=== PATIENT | female | born 1995 | race Caucasian/White ===

== ENCOUNTER 2021-05-18 14:26 | Inpatient (IN) | payer MEDICAID ==
[2021-05-18] MEDS ORDERED: Lactated Ringers 1,000 ML IV ONE (14:45)
[2021-05-18] MEDS ORDERED: Lactated Ringers 1,000 ML IV SCH (15:45)
--- NOTE | 2021-05-18 16:44 | PCM.LDHP ---
L&D History of Present Illness - General Date of Service: 05/18/21 Admit Problem/Dx: Admission Diagnosis/Problem Admission Diagnosis/Problem - Related Data Allergies/Adverse Reactions: Allergies Allergy/AdvReac Type Severity Reaction Status Date / Time latex Allergy Hives Verified 05/18/21 15:43 Past Medical History Cardiovascular History: Reports: None RADIOLOGIC THERAPIST History: Reports: - Past Surgical History Other HEENT Surgeries/Procedures: Glasses, strabismus repair as a child H&P Review of Systems - Review of Systems: Review Of Systems: See Below General: Reports: No Symptoms HEENT: Reports: No Symptoms Pulmonary: Reports: No Symptoms Cardiovascular: Reports: No Symptoms Gastrointestinal: Reports: No Symptoms Genitourinary: Reports: No Symptoms Musculoskeletal: Reports: No Symptoms Skin: Reports: No Symptoms Psychiatric: Reports: No Symptoms Neurological: Reports: No Symptoms Hematologic/Lymphatic: Reports: No Symptoms Immunologic: Reports: No Symptoms L&D Exam - Exam Exam: See Below - Vital Signs Vital Signs: Last Vital Signs Temp 36.8 C 05/18/21 14:34 Pulse 73 05/18/21 14:34 Resp 16 05/18/21 14:34 BP 111/59 L 05/18/21 14:34 Pulse Ox 98 05/18/21 14:34 - OB Specific Contraction Duration (sec): 60-70 Contraction Frequency (min): 2.5-5 Contraction Intensity: Mild Movement: Active Heart Tones: Present Heart Rate (FHR) Variability: Moderate (6-25 bmp) Presentation: Vertex - Babcock Score Babcock Score Cervix Position: Midposition Babcock Score Consistency: Soft Babcock Score Effacement: 31-50% Babcock Score Dilation: 1-2 cm Babcock Score Infant's Station: -1 ,0 Babcock Score Total: 7 - Exam General: Alert, Oriented, Cooperative, Mild Distress HEENT: PERRLA, Conjunctiva Clear, EACs Clear, EOMI, Hearing Intact, Mucosa Moist & [place], Nares Patent, Normal Nasal Septum, Posterior Pharynx Clear, Pupils Equal, Pupils Reactive, TMs Clear Neck: Supple, Trachea Midline Lungs: Clear to Auscultation, Normal Respiratory Effort Cardiovascular: Regular Rate, Regular Rhythm GI/Abdominal Exam: Normal Bowel Sounds, Soft, Non-Tender, No Organomegaly, No Distention, No Abnormal Bruit, No Mass, Pelvis Stable Rectal Exam: Normal Exam, Normal Rectal Tone Genitourinary: Normal external exam, Normal bimanual exam, Normal speculum exam Back Exam: Normal Inspection, Full Range of Motion Extremities: Normal Inspection, Normal Range of Motion, Non-Tender, No Pedal Edema, Normal Capillary Refill Skin: Warm, Dry, Intact Neurological: Cranial Nerves Intact, Reflexes Equal Bilateral Psychiatric: Alert, Normal Affect, Normal Mood - Patient Data Lab Results Last 24 hrs: Laboratory Results - last 24 hr 05/18/21 05/18/21 Range/Units 14:35 14:48 WBC 10.7 (4.5-11.0) K/uL RBC 3.72 (3.30-5.50) M/uL Hgb 11.2 L (12.0-15.0) g/dL Hct 32.8 L (36.0-48.0) % MCV 88 (80-98) fL MCH 30 (27-31) pg MCHC 34 (32-36) % Plt Count 293 (150-400) K/uL Urine Color Yellow (YELLOW) Urine Appearance Clear (CLEAR) Urine pH 7.0 (5.0-8.0) Ur Specific [place] 1.020 (1.008-1.030) Urine Protein Negative (NEGATIVE) mg/dL Urine Glucose (UA) Negative (NEGATIVE) mg/dL Urine Ketones Negative (NEGATIVE) mg/dL Urine Occult Blood Negative (NEGATIVE) Urine Nitrite Negative (NEGATIVE) Urine Bilirubin Negative (NEGATIVE) Urine Urobilinogen 0.2 (0.2-1.0) EU/dL Ur Leukocyte Esterase Negative (NEGATIVE) Urine RBC 0-5 (0-5) Urine WBC Not seen (0-5) Ur Epithelial Cells Few Amorphous Sediment Few Urine Bacteria Few Urine Mucus Few Result Diagrams: 05/18/21 14:48 - Problem List (1) IUGR (intrauterine growth restriction) Status: Acute Current Visit: Yes (2) SNOMED Code(s): 48271917 ICD Code: Z34.90 - ENCNTR FOR SUPRVSN OF NORMAL , UNSP, UNSP TRIMESTER Status: Acute Current Visit: Yes Qualifiers: Weeks of gestation: 36 weeks Qualified Code(s): Z3A.36 - 36 weeks gestation of (3) High risk due to smoking in third trimester SNOMED Code(s): 46550099, 11792184 ICD Code: O99.333 - SMOKING (TOBACCO) COMPLICATING , THIRD TRIMESTER Status: Acute Current Visit: Yes (4) labor Status: Acute Current Visit: Yes Qualifiers: labor trimester: third trimester Fetus number: single or unspecified fetus (5) Maternal care for bradycardia during SNOMED Code(s): 496183175, 591206284 ICD Code: O36.8390 - MATERN CARE FOR ABNLT FETL HRT RATE OR RHYM, UNSP TRI, UNSP Status: Acute Current Visit: Yes (6) bradycardia during labor SNOMED Code(s): 420633487, 907149723, 281369939 ICD Code: WSL3348 - Status: Acute Current Visit: Yes (7) History of SNOMED Code(s): 548787189 ICD Code: Z98.891 - HISTORY OF UTERINE SCAR FROM PREVIOUS SURGERY Status: Acute Current Visit: Yes (8) 36 weeks gestation of SNOMED Code(s): 11191009 ICD Code: Z3A.36 - 36 WEEKS GESTATION OF Status: Acute Current Visit: Yes Problem List Initiated/Reviewed/Updated: Yes Orders Last 24hrs: Active Orders 24 hr Category Date Time Status OB Check [OM.PC] Click to Edit Care 05/18/21 14:35 Ordered OB Ltd 1 or More Fetus [US] Routine Exams 05/18/21 14:35 Taken TYPE AND SCREEN [BBK] Routine Lab 05/18/21 16:36 Ordered Lactated Ringers [Ringers, Lactated] 1,000 ml Med 05/18/21 15:45 Active IV ASDIRECTED Medication Orders Lactated Ringer's (Ringers, Lactated) 1,000 mls @ 125 mls/hr IV ASDIRECTED BRYSON Last Admin: 05/18/21 15:46 Dose: 125 mls/hr Documented by: EDUARDO Assessment/Plan Comment:: 05/18/2021 25 yo is here at 36 0/7 gestational weeks after being seen in clinic and having noted bradycardia with variables. She is also a RCS and cont racting every 1.5-2.5 minutes. 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
[2021-05-18] MEDS ORDERED: Sodium Chloride 0.9% 10 ML Syringe FLUSH PRN (16:57)
[2021-05-18] MEDS ORDERED: Oxytocin 10 Units/1 ML SDV ONE ×2 (17:06→18:07)
[2021-05-18] MEDS ORDERED: cefOXitin 2 GM Vial ONE (17:47)
[2021-05-18] MEDS ORDERED: ePHEDrine 50 MG/ML SDV IVPUSH PRN (17:48)
[2021-05-18] MEDS ORDERED: Lanolin 100% Cream 40 GM Tube TOP ONE (17:48)
[2021-05-18] MEDS ORDERED: Ondansetron 4 MG Tab.DIS PO PRN (17:48)
[2021-05-18] MEDS ORDERED: Naloxone 0.4 MG/ML SDV IVPUSH PRN (17:48)
[2021-05-18] MEDS ORDERED: Benzocaine 20% Top Spray 56 GM Bottle TOP ONE (17:48)
[2021-05-18] MEDS ORDERED: Bisacodyl 10 MG Supp RECTAL PRN (17:48)
[2021-05-18] MEDS ORDERED: Witch Hazel Medicated Pads 100/Jar TOP ONE (17:48)
[2021-05-18] MEDS ORDERED: Simethicone 80 MG Tab.Chew PO PRN (17:48)
[2021-05-18] MEDS ORDERED: diphenhydrAMINE 50 MG/ML SDV IVPUSH PRN (17:48)
[2021-05-18] MEDS ORDERED: fentaNYL 100 MCG/2 ML SDV IVPUSH PRN (17:49)
[2021-05-18] MEDS ORDERED: fentaNYL 100 MCG/2 ML SDV ONE ×2 (18:07→18:08)
[2021-05-18] MEDS ORDERED: ePHEDrine 50 MG/ML SDV ONE (18:07)
[2021-05-18 18:11] LABS: CORONAVIRUS COVID-19 NAA NEGATIVE (NEGATIVE)
[2021-05-18] MEDS: Acetaminophen/HYDROcodone 325-5 MG Tab PO PRN (20:47)
[2021-05-18] MEDS: Ibuprofen 800 MG Tab PO PRN (22:57)
[2021-05-19] MEDS: Acetaminophen/HYDROcodone 325-5 MG Tab PO PRN ×2 (01:32→15:38)
[2021-05-19] MEDS ORDERED: Benzocaine 20% Top Spray 56 GM Bottle TOP PRN (07:06)
[2021-05-19] MEDS ORDERED: Lanolin 100% Cream 40 GM Tube TOP PRN (07:07)
[2021-05-19] MEDS ORDERED: Witch Hazel Medicated Pads 100/Jar TOP PRN (07:07)
[2021-05-19 07:40] VITALS: BP 104/46; PULSE 73
--- NOTE | 2021-05-19 08:13 | PN ---
DATE OF SERVICE: 05/19/2021 SUBJECTIVE: The patient is doing well. Pain is well controlled. No nausea, vomiting, shortness of breath, or chest pain. OBJECTIVE: VITAL SIGNS: Stable. She is afebrile per nursing report. CARDIOVASCULAR: Regular rhythm and rate. RESPIRATORY: Lungs clear to auscultation bilaterally. ABDOMEN: Bowel sounds positive. Incision is healing well. ASSESSMENT: Status post section. PLAN: We will continue to work on advancing diet and other aspects of her care. Please see oil recovery operator's notes for further details. Lee Junior MD /[id number]
[2021-05-19] MEDS: Ibuprofen 800 MG Tab PO PRN (08:43)
[2021-05-19] MEDS ORDERED: Prenatal Multivitamin with Calcium/Folic Acid/Iron Tab PO SCH (09:00)
--- NOTE | 2021-05-19 10:28 | US ---
OB Ltd 1 or More Fetus CLINICAL HISTORY: Decreased variability, 36 week gestation by LMP COMPARISON: None FINDINGS: There is a single viable intrauterine in cephalic presentation. heart rate varied between 101-107 Placenta is fundal. Amniotic fluid index is 6.4 cm Average ultrasound age by multiple parameters is 33 weeks 5 days. EGD 07/01/2021. Estimated weight is 2116 g. This is in the 10th percentile by LMP There is spontaneous motion. Cervix is not well seen IMPRESSION: Single viable intrauterine with ultrasound age of 33 weeks 5 days. This is greater than 2 weeks less than LMP dating. Oligohydramnios weight in the 10th percentile by LMP
--- NOTE | 2021-05-19 15:13 | PCM.PNPP ---
- General Info Date of Service: 05/19/21 Functional Status: Reports: Pain Controlled - Review of Systems General: Reports: No Symptoms HEENT: Reports: No Symptoms Pulmonary: Reports: No Symptoms Cardiovascular: Reports: No Symptoms Gastrointestinal: Reports: No Symptoms Genitourinary: Reports: No Symptoms Musculoskeletal: Reports: No Symptoms Skin: Reports: No Symptoms Neurological: Reports: No Symptoms Psychiatric: Reports: No Symptoms - General Info Date of Service: 05/19/21 - Patient Data Vital Signs - Most Recent: Last Vital Signs Temp 36.6 C 05/19/21 07:39 Pulse 73 05/19/21 07:39 Resp 16 05/19/21 07:39 BP 104/46 L 05/19/21 07:39 Pulse Ox 99 05/19/21 07:39 Weight - Most Recent: 80.286 kg I&O - Last 24 Hours: Intake & Output 05/19/21 05/19/21 05/19/21 06:59 14:59 22:59 Intake Total 0 Balance 0 Lab Results - Last 24 Hours: Laboratory Results - last 24 hr 05/18/21 05/18/21 05/18/21 Range/Units 14:35 14:48 16:47 WBC (4.5-11.0) K/uL RBC (3.30-5.50) M/uL Hgb (12.0-15.0) g/dL Hct (36.0-48.0) % MCV (80-98) fL MCH (27-31) pg MCHC (32-36) % Plt Count (150-400) K/uL Neut % (Auto) (36-66) % Lymph % (Auto) (24-44) % [place] % (Auto) (2-6) % Eos % (Auto) (2-4) % Baso % (Auto) (0-1) % Sodium (140-148) mmol/L Potassium (3.6-5.2) mmol/L Chloride (100-108) mmol/L Carbon Dioxide (21-32) mmol/L Anion Gap (5.0-14.0) mmol/L BUN (7-18) mg/dL Creatinine (0.6-1.0) mg/dL Est Cr Clr Drug Dosing mL/min Estimated GFR (MDRD) (>60) Glucose (74-106) mg/dL Calcium (8.5-10.1) mg/dL Urine Color Yellow (YELLOW) Urine Appearance Clear (CLEAR) Urine pH 7.0 (5.0-8.0) Ur Specific [place] 1.020 (1.008-1.030) Urine Protein Negative (NEGATIVE) mg/dL Urine Glucose (UA) Negative (NEGATIVE) mg/dL Urine Ketones Negative (NEGATIVE) mg/dL Urine Occult Blood Negative (NEGATIVE) Urine Nitrite Negative (NEGATIVE) Urine Bilirubin Negative (NEGATIVE) Urine Urobilinogen 0.2 (0.2-1.0) EU/dL Ur Leukocyte Esterase Negative (NEGATIVE) Urine RBC 0-5 (0-5) Urine WBC Not seen (0-5) Ur Epithelial Cells Few Amorphous Sediment Few Urine Bacteria Few Urine Mucus Few Urine Opiates Screen (NEGATIVE) Ur Oxycodone Screen (NEGATIVE) Urine Methadone Screen (NEGATIVE) Ur Propoxyphene Screen (NEGATIVE) Ur Barbiturates Screen (NEGATIVE) Ur Tricyclics Screen (NEGATIVE) Ur Phencyclidine Scrn (NEGATIVE) Ur Amphetamine Screen (NEGATIVE) U Methamphetamines Scrn (NEGATIVE) Urine MDMA Screen (NEGATIVE) U Benzodiazepines Scrn (NEGATIVE) U Cocaine Metab Screen (NEGATIVE) U Marijuana (THC) Screen (NEGATIVE) Influenza Type A RNA Negative (NEGATIVE) RSV RNA (INAAT) Negative (NEGATIVE) Influenza Type B RNA Negative (NEGATIVE) SARS-CoV-2 RNA (AMARA) Negative (NEGATIVE) Blood Type O NEGATIVE Gel Antibody Screen Negative Rhogam Indicated 05/19/21 05/19/21 05/19/21 Range/Units 03:12 05:50 05:50 WBC 11.1 H (4.5-11.0) K/uL RBC 3.24 L (3.30-5.50) M/uL Hgb 9.6 L (12.0-15.0) g/dL Hct 28.5 L (36.0-48.0) % MCV 88 (80-98) fL MCH 30 (27-31) pg MCHC 34 (32-36) % Plt Count 271 (150-400) K/uL Neut % (Auto) 73.5 H (36-66) % Lymph % (Auto) 16.8 L (24-44) % Humphreys % (Auto) 9.0 H (2-6) % Eos % (Auto) 0.5 L (2-4) % Baso % (Auto) 0.2 (0-1) % Sodium 140 (140-148) mmol/L Potassium 3.9 (3.6-5.2) mmol/L Chloride 107 (100-108) mmol/L Carbon Dioxide 25 (21-32) mmol/L Anion Gap 7.6 (5.0-14.0) mmol/L BUN 7 (7-18) mg/dL Creatinine 0.5 L (0.6-1.0) mg/dL Est Cr Clr Drug Dosing 148.53 mL/min Estimated GFR (MDRD) > 60 (>60) Glucose 80 (74-106) mg/dL Calcium 7.8 L (8.5-10.1) mg/dL Urine Color (YELLOW) Urine Appearance (CLEAR) Urine pH (5.0-8.0) Ur Specific [place] (1.008-1.030) Urine Protein (NEGATIVE) mg/dL Urine Glucose (UA) (NEGATIVE) mg/dL Urine Ketones (NEGATIVE) mg/dL Urine Occult Blood (NEGATIVE) Urine Nitrite (NEGATIVE) Urine Bilirubin (NEGATIVE) Urine Urobilinogen (0.2-1.0) EU/dL Ur Leukocyte Esterase (NEGATIVE) Urine RBC (0-5) Urine WBC (0-5) Ur Epithelial Cells Amorphous Sediment Urine Bacteria Urine Mucus Urine Opiates Screen Negative (NEGATIVE) Ur Oxycodone Screen Negative (NEGATIVE) Urine Methadone Screen Negative (NEGATIVE) Ur Propoxyphene Screen Negative (NEGATIVE) Ur Barbiturates Screen Negative (NEGATIVE) Ur Tricyclics Screen Negative (NEGATIVE) Ur Phencyclidine Scrn Negative (NEGATIVE) Ur Amphetamine Screen Negative (NEGATIVE) U Methamphetamines Scrn Negative (NEGATIVE) Urine MDMA Screen Negative (NEGATIVE) U Benzodiazepines Scrn Negative (NEGATIVE) U Cocaine Metab Screen Negative (NEGATIVE) U Marijuana (THC) Screen Negative (NEGATIVE) Influenza Type A RNA (NEGATIVE) RSV RNA (INAAT) (NEGATIVE) Influenza Type B RNA (NEGATIVE) SARS-CoV-2 RNA (AMARA) (NEGATIVE) Blood Type Gel Antibody Screen Rhogam Indicated 05/19/21 Range/Units 05:50 WBC (4.5-11.0) K/uL RBC (3.30-5.50) M/uL Hgb (12.0-15.0) g/dL Hct (36.0-48.0) % MCV (80-98) fL MCH (27-31) pg MCHC (32-36) % Plt Count (150-400) K/uL Neut % (Auto) (36-66) % Lymph % (Auto) (24-44) % [place] % (Auto) (2-6) % Eos % (Auto) (2-4) % Baso % (Auto) (0-1) % Sodium (140-148) mmol/L Potassium (3.6-5.2) mmol/L Chloride (100-108) mmol/L Carbon Dioxide (21-32) mmol/L Anion Gap (5.0-14.0) mmol/L BUN (7-18) mg/dL Creatinine (0.6-1.0) mg/dL Est Cr Clr Drug Dosing mL/min Estimated GFR (MDRD) (>60) Glucose (74-106) mg/dL Calcium (8.5-10.1) mg/dL Urine Color (YELLOW) Urine Appearance (CLEAR) Urine pH (5.0-8.0) Ur Specific [place] (1.008-1.030) Urine Protein (NEGATIVE) mg/dL Urine Glucose (UA) (NEGATIVE) mg/dL Urine Ketones (NEGATIVE) mg/dL Urine Occult Blood (NEGATIVE) Urine Nitrite (NEGATIVE) Urine Bilirubin (NEGATIVE) Urine Urobilinogen (0.2-1.0) EU/dL Ur Leukocyte Esterase (NEGATIVE) Urine RBC (0-5) Urine WBC (0-5) Ur Epithelial Cells Amorphous Sediment Urine Bacteria Urine Mucus Urine Opiates Screen (NEGATIVE) Ur Oxycodone Screen (NEGATIVE) Urine Methadone Screen (NEGATIVE) Ur Propoxyphene Screen (NEGATIVE) Ur Barbiturates Screen (NEGATIVE) Ur Tricyclics Screen (NEGATIVE) Ur Phencyclidine Scrn (NEGATIVE) Ur Amphetamine Screen (NEGATIVE) U Methamphetamines Scrn (NEGATIVE) Urine MDMA Screen (NEGATIVE) U Benzodiazepines Scrn (NEGATIVE) U Cocaine Metab Screen (NEGATIVE) U Marijuana (THC) Screen (NEGATIVE) Influenza Type A RNA (NEGATIVE) RSV RNA (INAAT) (NEGATIVE) Influenza Type B RNA (NEGATIVE) SARS-CoV-2 RNA (AMARA) (NEGATIVE) Blood Type O NEGATIVE Gel Antibody Screen Negative Rhogam Indicated Yes, baby rh pos Med Orders - Current: Current Medications Hydrocodone Bitart/Acetaminophen (Acetaminophen/Hydrocodone 325-5 Mg Tab) 1 tab PO Q4H PRN PRN Reason: Pain (moderate 4-6) Last Admin: 05/19/21 01:32 Dose: 1 tab Documented by: Benzocaine (Benzocaine 20% Top [place] 56 Gm Bottle) 0 gm TOP Q4H PRN PRN Reason: to perianal area Bisacodyl (Bisacodyl 10 Mg Supp) 10 mg RECTAL BID PRN PRN Reason: Constipation Diphenhydramine HCl (Diphenhydramine 50 Mg/Ml Sdv) 25 mg IVPUSH Q6H PRN PRN Reason: Itching or Nausea Emollient Ointment (Lanolin 100% Cream 40 Gm Tube) 0 gm TOP ASDIRECTED PRN PRN Reason: TO SORE NIPPLES Ephedrine Sulfate (Ephedrine 50 Mg/Ml Sdv) 5 mg IVPUSH ASDIRECTED PRN PRN Reason: Other Fentanyl (Fentanyl 100 Mcg/2 Ml Sdv) 10 - 30 mcg IVPUSH Q1H PRN PRN Reason: Pain (severe 7-10) Last Admin: 05/18/21 19:50 Dose: 20 mcg Documented by: Lactated Ringer's (Ringers, Lactated) 1,000 mls @ 125 mls/hr IV ASDIRECTED [facility] Last Admin: 05/18/21 15:46 Dose: 125 mls/hr Documented by: Ibuprofen (Ibuprofen 800 Mg Tab) 800 mg PO Q8H PRN PRN Reason: mild pain or fever Last Admin: 05/19/21 08:43 Dose: 800 mg Documented by: Naloxone HCl (Naloxone 0.4 Mg/Ml Sdv) 0.1 mg IVPUSH ASDIRECTED PRN PRN Reason: Respiratory Depression Ondansetron HCl (Ondansetron 4 Mg Tab.Dis) 8 mg PO Q6H PRN PRN Reason: Nausea/Vomiting Prenat Multivit/[place]/Iron/Folic Ac ( Multivitamin With Calcium/Folic Acid/Iron Tab) 1 each PO DAILY [facility] Last Admin: 05/19/21 10:05 Dose: 1 each Documented by: Simethicone (Simethicone 80 Mg Tab.Chew) 80 mg PO Q4H PRN PRN Reason: Gas Sodium Chloride (Sodium Chloride 0.9% 10 Ml Syringe) 10 ml FLUSH ASDIRECTED PRN PRN Reason: Keep Vein Open Mckenzie Floyd (Witelizabeth Mariel Medicated Pads 100/Jar) 1 pad TOP ASDIRECTED PRN PRN Reason: to perineum Discontinued Medications Benzocaine (Benzocaine 20% Top [place] 56 Gm Bottle) 0 gm TOP Q4H ONE Stop: 05/18/21 17:49 Last Admin: 05/19/21 00:27 Dose: Not Given Documented by: Cefoxitin Sodium (Cefoxitin 2 Gm Vial) Confirm Administered Dose 4 gm .ROUTE .STK-MED ONE Stop: 05/18/21 17:48 Emollient Ointment (Lanolin 100% Cream 40 Gm Tube) 40 gm TOP ASDIRECTED ONE Stop: 05/18/21 17:49 Ephedrine Sulfate (Ephedrine 50 Mg/Ml Sdv) Confirm Administered Dose 50 mg .ROUTE .STK-MED ONE Stop: 05/18/21 18:08 Fentanyl (Fentanyl 100 Mcg/2 Ml Sdv) Confirm Administered Dose 100 mcg .ROUTE .STK-MED ONE Stop: 05/18/21 18:08 Fentanyl (Fentanyl 100 Mcg/2 Ml Sdv) Confirm Administered Dose 100 mcg .ROUTE .STK-MED ONE Stop: 05/18/21 18:09 Lactated Ringer's (Ringers, Lactated) 1,000 mls @ 999 mls/hr IV BOLUS ONE Stop: 05/18/21 15:45 Last Admin: 05/18/21 14:45 Dose: 999 mls/hr Documented by: Oxytocin (Oxytocin 10 Units/1 Ml Sdv) Confirm Administered Dose 10 unit .ROUTE .STK-MED ONE Stop: 05/18/21 17:07 Last Admin: 05/18/21 18:20 Dose: 10 unit Documented by: Oxytocin (Oxytocin 10 Units/1 Ml Sdv) Confirm Administered Dose 30 unit .ROUTE .STK-MED ONE Stop: 05/18/21 18:08 Witch Mariel (Witch Mariel Medicated Pads 100/Jar) 1 pad TOP ASDIRECTED ONE Stop: 05/18/21 17:49 Last Admin: 05/19/21 00:27 Dose: Not Given Documented by: - Infant Interaction Disposition, : Not Applicable Interaction: Not Applicable Support Person: Sister - Recovery Exam Fundal Tone: Firm Fundal Level: 1 Fingerbreadths Below Umbilicus Fundal Placement: Midline Lochia Amount: Moderate Lochia Color: Rubra/Red Perineum Description: Intact, Minimal Bruising/Swelling Episiotomy/Laceration: None Bladder Status: Voiding Urinary Elimination: Voided - Exam General: Alert, Oriented HEENT: Pupils Equal, Pupils Reactive, Mucous Membr. Moist/[place] Neck: Supple Lungs: Clear to Auscultation, Normal Respiratory Effort Cardiovascular: Regular Rate, Regular Rhythm, No Murmurs, Murmurs GI/Abdominal Exam: Normal Bowel Sounds, Soft, Non-Tender, No Distention, Pelvis Stable Extremities: Normal Inspection, Normal Range of Motion, Non-Tender, No Pedal Edema, Normal Capillary Refill Skin: Warm, Dry, Intact Wound/Incisions: Healing Well Neurological: No New Focal Deficit Psy/Mental Status: Alert, Normal Affect, Normal Mood - Problem List & Annotations (1) 36 weeks gestation of SNOMED Code(s): 29795874 Code(s): Z3A.36 - 36 WEEKS GESTATION OF Status: Acute Current Visit: Yes (2) bradycardia during labor SNOMED Code(s): 522332576, 531981068, 262069419 Code(s): FLP6075 - Status: Acute Current Visit: Yes (3) High risk due to smoking in third trimester SNOMED Code(s): 87472758, 99470985 Code(s): O99.333 - SMOKING (TOBACCO) COMPLICATING , THIRD TRIMESTER Status: Acute Current Visit: Yes (4) History of SNOMED Code(s): 312656537 Code(s): Z98.891 - HISTORY OF UTERINE SCAR FROM PREVIOUS SURGERY Status: Acute Current Visit: Yes (5) IUGR (intrauterine growth restriction) Status: Acute Current Visit: Yes (6) Maternal care for bradycardia during SNOMED Code(s): 507820507, 094437188 Code(s): O36.8390 - MATERN CARE FOR ABNLT FETL HRT RATE OR RHYM, UNSP TRI, UNSP Status: Acute Current Visit: Yes (7) SNOMED Code(s): 89984089 Code(s): Z34.90 - ENCNTR FOR SUPRVSN OF NORMAL , UNSP, UNSP TRIMESTER Status: Acute Current Visit: Yes Qualifiers: Weeks of gestation: 36 weeks Qualified Code(s): Z3A.36 - 36 weeks gestation of (8) labor Status: Acute Current Visit: Yes Qualifiers: labor trimester: third trimester Fetus number: single or unspecif ied fetus - Problem List Review Problem List Initiated/Reviewed/Updated: Yes - My Orders Last 24 Hours: My Active Orders 05/19/21 15:07 Ready for Discharge [RC] PER UNIT ROUTINE - Assessment Assessment:: 05/19/21 Patient 1 day post operative after repeat section Voiding Pain controlled Eating, walking Pumping some Hgb and VSS Patient wanting to leave to go to NICU to be with baby - Plan Plan:: 05/18/2021 25 yo is here at 36 0/7 gestational weeks after being seen in clinic and having noted bradycardia with variables. She is also a RCS and tana every 1.5-2.5 minutes. Category II strip- bradycardia with variables Tana regular and moderate in intensity even with interventions to decrease them SVE-1-2/40/-1 Suspected IUGR FLORECITA-6.2 Less than 10th percentile for growth Cigarette smoker Labs-O negative, Hep B neg, Hep C neg, HIV neg, RPR nonreactive, Rubella Immune GBS negative-Fragile X carrier Decision made to proceed with section-crew and surgeon notified 05/19/21 Discharging to be with baby in NICU Stable postoperatively Rx for pain medications sent Follow up 2 weeks surgery, 6 weeks with me
--- NOTE | 2021-06-08 14:02 | OR ---
DATE OF PROCEDURE: 06/08/2021 SURGEON: Lee Junior MD PROCEDURE: section with aftercare. LEAD PHARMACY TECHNICIAN: Iris Iqbal. RISKS: Risks, benefits, alternatives, and limitations including but not limited to infection, bleeding, injury to baby, bladder, blood vessels, and other risks not listed here. PREPROCEDURE DIAGNOSIS: Failure to advance. POSTPROCEDURE DIAGNOSIS: Failure to advance. DESCRIPTION OF PROCEDURE: The patient was placed in supine position. A Pfannenstiel-type incision was made. This was carried down urgently to and through the rectus sheath. The peritoneum was opened sharply. The bladder was reflected inferiorly. The uterus was opened rapidly. The baby was delivered with mild difficulty. The placenta was then delivered. Pitocin was given. The uterus was closed with 3 layers of blunt Vicryl, #1 in locking fashion after bleeding was controlled by direct pressure and electrocautery. Clot was removed from the abdomen, subsequently irrigated. The peritoneum was closed, rectus muscles reapproximated. The fascia was closed with #1 Vicryl running suture. Subcutaneous tissues closed with 3-0 Vicryl. Skin was closed with 4-0 Vicryl. The patient tolerated procedure well. Lee Junior MD /[id number]
== END 2021-05-19 15:56 | disposition home or self-care (01) | DRG 786 ==
LOC: JP.OBCHECK 14:26 → JP.OB 14:27 → OBSVTOIN 18:25 → JP.MS 19:00 → UNDODISOB 05-19 15:56
PROVIDERS: ADMIT Advanced Practice Midwife; ATTEND Advanced Practice Midwife
PROC: 10D00Z1 Extraction of Products of Conception, Low, Open Approach (ICD-10-PCS; principal; 2021-05-18)
PROC: 3E0334Z Introduction of Serum, Toxoid and Vaccine into Peripheral Vein, Percutaneous Approach (ICD-10-PCS; 2021-05-19)
DX: O34.211 Maternal care for low transverse scar from previous cesarean delivery (principal); O60.14X0 Preterm labor third trimester with preterm delivery third trimester, not applicable or unspecified; O99.892 Other specified diseases and conditions complicating childbirth; R00.1 Bradycardia, unspecified; Z37.0 Single live birth; F17.210 Nicotine dependence, cigarettes, uncomplicated; O36.5930 Maternal care for other known or suspected poor fetal growth, third trimester, not applicable or unspecified; Z20.822 Contact with and (suspected) exposure to COVID-19; O99.334 Smoking (tobacco) complicating childbirth; Z3A.36 36 weeks gestation of pregnancy; O26.893 Other specified pregnancy related conditions, third trimester; Z67.41 Type O blood, Rh negative
CPT/HCPCS: 0241U; 36415; 76815; 76815-26; 80048; 80305-QW; 81001; 85025; 85027; 85460; 86850; 86900; 86901; 88307; 99211; A9270-GY; J0694; J2590; J2790; J3010; J7120

== ENCOUNTER 2024-02-04 09:04 | Emergency (ER) | payer MEDICARE, MEDICAID ==
[2024-02-04 09:49] LABS: STREP A BY PCR NOT DETECTED (NOT DETECT)
[2024-02-04 10:01] LABS: CORONAVIRUS COVID-19 NAA NEGATIVE (NEGATIVE); INFLUENZA A NAA NEGATIVE (NEGATIVE); INFLUENZA B NAA NEGATIVE (NEGATIVE); RESPIRATORY SYNCYTIAL VIR NAA NEGATIVE (NEGATIVE)
== END 2024-02-04 10:37 | disposition home or self-care (01) ==
LOC: JP.ED 09:04
DX: B34.9 Viral infection, unspecified (principal); Z91.040 Latex allergy status; Z86.16 Personal history of COVID-19
CPT/HCPCS: 0241U; 36415; 84703; 87651; 99283